=== PATIENT | male | born 1975 | race Two or more races ===

== ENCOUNTER 2022-08-01 23:37 | Emergency (ER) | payer MEDICAID ==
[~2022-08-01] VITALS: Ht 165.1 cm; Wt 93.0 kg
[2022-08-02 00:23] VITALS: BP 129/67
[2022-08-02] MEDS ORDERED: DiphenhydrAMINE HCL 50 MG CAPSULE PO ONE (00:30)
[2022-08-02] MEDS ORDERED: FAMOTIDINE 20 MG TABLET PO ONE (00:30)
[2022-08-02] MEDS ORDERED: DEXAMETHASONE SOD PHOS 4 MG/ML 5 ML VIAL IM ONE (00:30)
== END 2022-08-02 01:04 | disposition home or self-care (01) ==
LOC: EMS 23:37
DX: L50.9 Urticaria, unspecified (principal); E11.9 Type 2 diabetes mellitus without complications
CPT/HCPCS: 99283; 96372; J1100